=== PATIENT | male | born 1970 | race Caucasian/White ===

== ENCOUNTER 2016-10-22 17:42 | Outpatient (CLI) | payer OTHER ==
[2016-10-22 18:22] LABS: BF APPEARANCE UNSPUN SLIGHTLY CLOUDY (CLEAR); BODY FLUID COLOR YELLOW (LT YELLOW); BODY FLUID TOTAL VOLUME 14.5 mL; SOURCE/TYPE ,BODY FLUID SYNOVIAL
[2016-10-22 18:32] LABS: BODY FLUID CRYSTALS NO CRYSTALS SEEN (None Seen)
[2016-10-22 20:23] LABS: EOSINOPHIL, BODY FLUID 0 %; LYMPHOCYTES, BODY FLUID 10 %; MONOCYTES,BODY FLUID 2 %; NEUTROPHIL, BODY FLUID 88 %; RBC, BODY FLUID 656 /uL; WBC, BODY FLUID 5711 /uL
== END 2016-10-22 18:47 | disposition home or self-care (01) ==
LOC: SLB 17:42
PROVIDERS: ATTEND Orthopaedic Surgery
DX: M10.061 Idiopathic gout, right knee (principal)
CPT/HCPCS: 87070-TC; 89051-TC; 89060-TC

== ENCOUNTER 2016-11-20 12:38 | Outpatient (CLI) | payer OTHER ==
[2016-11-20 13:44] LABS: BODY FLUID CRYSTALS NO CRYSTALS SEEN (None Seen)
[2016-11-20 14:16] LABS: BODY FLUID SOURCE/ TYPE SYNOVIAL; SOURCE/TYPE ,BODY FLUID SYNOVIAL
[2016-11-20 14:17] LABS: APPEARANCE,SPUN,BODY FLUID HAZY (CLEAR); BF APPEARANCE UNSPUN HAZY (CLEAR); BODY FLUID COLOR YELLOW (LT YELLOW); BODY FLUID TOTAL VOLUME 4 mL; WBC, BODY FLUID 1369 /uL
[2016-11-20 14:18] LABS: LYMPHOCYTES, BODY FLUID 1 %; MONOCYTES,BODY FLUID 6 %; NEUTROPHIL, BODY FLUID 93 %; RBC, BODY FLUID 188 /uL
== END 2016-11-20 19:34 | disposition home or self-care (01) ==
LOC: SLB 12:38
PROVIDERS: ATTEND Orthopaedic Surgery
DX: M25.762 Osteophyte, left knee (principal)
CPT/HCPCS: 82947-TC; 84157-TC; 87070-TC; 89051-TC; 89060-TC

== ENCOUNTER 2016-11-24 10:06 | Emergency (ER) | payer OTHER ==
[~2016-11-24] VITALS: Ht 182.9 cm; Wt 108.9 kg
[2016-11-24 10:20] VITALS: BP_SYST 127
--- NOTE | 2016-11-24 10:29 | NUR ---
Patient to ER bed 5 to gown for evaluation. Side rails up. Report given to Shi BAKER.
--- NOTE | 2016-11-24 10:32 | NUR ---
Pt complains of left knee pain since , swelling noted to medial knee. Pt states went to Dr. Deleon on Wednesday morning, aspirated knee and swelling started this morning again. Pt unable to put weight on left leg. Pt ambulated with crutches. No other injuries/complaints per pt or noted.
--- NOTE | 2016-11-24 10:47 | NUR ---
ER Dr. Forte at bedside examining patient.
--- NOTE | 2016-11-24 11:25 | NUR ---
US is at bedside
--- NOTE | 2016-11-24 12:00 | NUR ---
Pt resting comfortably. No noted distress or discomfort.
[2016-11-24] MEDS ORDERED: MORPHINE SULFATE 10 MG/ML VIAL IM ONE (12:45)
[2016-11-24] MEDS ORDERED: ONDANSETRON 4 MG ODT TAB PO ONE (12:45)
--- NOTE | 2016-11-24 12:54 | NUR ---
Pain medication was given. No noted adverse reactions. Will continue to monitor
[2016-11-24 13:05] VITALS: BP_SYST 136
--- NOTE | 2016-11-24 13:05 | NUR ---
Patient given written and verbal discharge instructions and verbalizes understanding. ER MD discussed with patient the results and treatment provided. Patient in stable condition. ID arm band removed. No Rx given. Patient educated on pain management and to follow up with PMD. Pain Scale 4. Dr. Forte is aware, pain medication was given here. Opportunity for questions provided and answered.
== END 2016-11-24 13:05 | disposition home or self-care (01) ==
LOC: SED 10:06
DX: M25.562 Pain in left knee (principal); M79.662 Pain in left lower leg; M10.9 Gout, unspecified
CPT/HCPCS: 93971; 96372; 99284; J2270; Q0162

== ENCOUNTER 2018-01-14 23:40 | Emergency (ER) | payer OTHER ==
[~2018-01-14] VITALS: Ht 182.9 cm; Wt 108.9 kg
[2018-01-14 23:44] VITALS: BP_SYST 131
[2018-01-14] MEDS ORDERED: KETOROLAC TROMETHAMINE 60 MG/2 ML VIAL IM ONE (23:45)
[2018-01-14] MEDS ORDERED: LIDOCAINE 1% 10 MG/ML, 20 ML MDV INJ ONE (23:45)
[2018-01-14] MEDS ORDERED: DIPH-TET-PERTUS Vaccine 0.5 ML VIAL (ADACEL) I.M. ONE (23:45)
[2018-01-15] MEDS ORDERED: BACITRACIN 1 GM OINT TP ONE (00:43)
[2018-01-15] MEDS ORDERED: BACITRACIN ZINC 15 GM TOPICAL OINTMENT TP ONE (00:45)
[2018-01-15 01:09] VITALS: BP_SYST 128
== END 2018-01-15 01:09 | disposition home or self-care (01) ==
LOC: SED 23:40
DX: S81.012A Laceration without foreign body, left knee, initial encounter (principal); S01.01XA Laceration without foreign body of scalp, initial encounter; R03.0 Elevated blood-pressure reading, without diagnosis of hypertension; W22.8XXA Striking against or struck by other objects, initial encounter; Y93.89 Activity, other specified; Y92.89 Other specified places as the place of occurrence of the external cause; Y99.8 Other external cause status
CPT/HCPCS: 12004; 73564; 90471; 90715; 96372; 99284; J1885; J2001